=== PATIENT | male | born 1965 | race Caucasian/White ===

== ENCOUNTER 2022-07-11 19:20 | Emergency (ER) | payer OTHER ==
[2022-07-11 19:53] VITALS: BP 131/98; PULSE 74; RESP 20; BMI 37.5
[2022-07-11] MEDS ORDERED: KETOROLAC TROMETHAMINE 15 MG/ML VIAL IM ONE (20:19)
[2022-07-11] MEDS ORDERED: KETOROLAC TROMETHAMINE 15 MG/ML VIAL ONE (20:21)
[2022-07-11] MEDS ORDERED: BACITRACIN 15 GM TUBE TOPICAL OINTMENT TP ONE (20:23)
== END 2022-07-11 21:14 | disposition home or self-care (01) ==
LOC: JER 19:20
PROC: 3E0233Z Introduction of Anti-inflammatory into Muscle, Percutaneous Approach (ICD-10-PCS; principal; 2022-07-11)
DX: M79.644 Pain in right finger(s) (principal); W01.0XXA Fall on same level from slipping, tripping and stumbling without subsequent striking against object, initial encounter
CPT/HCPCS: 73130-TC-RT-FY; 99284-25

== ENCOUNTER 2023-08-19 04:40 | Day surgery (SDC) | payer OTHER ==
[2023-08-18 11:27] VITALS: BMI 33.1
[2023-08-19 11:52] VITALS: TEMP 98
[2023-08-19 12:32] VITALS: BP 106/66; PULSE 71; RESP 14
== END 2023-08-19 12:30 | disposition home or self-care (01) ==
LOC: JASU-ENDO 04:40
PROVIDERS: ATTEND Internal Medicine Gastroenterology
PROC: 0DBK8ZX Excision of Ascending Colon, Via Natural or Artificial Opening Endoscopic, Diagnostic (ICD-10-PCS; principal; 2023-08-19 10:30)
DX: Z12.11 Encounter for screening for malignant neoplasm of colon (principal); Z80.0 Family history of malignant neoplasm of digestive organs; D12.2 Benign neoplasm of ascending colon; K57.30 Diverticulosis of large intestine without perforation or abscess without bleeding
CPT/HCPCS: 88305-TC

== ENCOUNTER 2024-04-07 04:45 | Day surgery (SDC) | payer OTHER ==
[2024-04-06 09:45] VITALS: BMI 36.2
[2024-04-07] MEDS ORDERED: LIDOCAINE HCL/PF 1% SDV 5ML VIAL ONE (07:20)
[2024-04-07] MEDS ORDERED: DEXAMETHASONE SOD PHOSPHATE 10 MG/1 ML VIAL ONE (07:20)
[2024-04-07 10:48] VITALS: RESP 18
[2024-04-07] MEDS: LIDOCAINE 1% P/F 10 MG/ML VIAL PNB ONE (12:53)
[2024-04-07] MEDS: IOHEXOL 180 MG/1 ML ML IJ ONE (12:54)
[2024-04-07] MEDS: DEXAMETHASONE SOD PHOSPHATE 10 MG/1 ML VIAL IVPUSH ONE (12:55)
[2024-04-07 13:55] VITALS: BP 120/70; PULSE 64; TEMP 98.2
== END 2024-04-07 13:55 | disposition home or self-care (01) ==
LOC: JASU-SURG 04:45
PROVIDERS: ATTEND Pain Medicine Pain Medicine
PROC: 3E0R3BZ Introduction of Anesthetic Agent into Spinal Canal, Percutaneous Approach (ICD-10-PCS; 2024-04-07)
PROC: 3E0R33Z Introduction of Anti-inflammatory into Spinal Canal, Percutaneous Approach (ICD-10-PCS; principal; 2024-04-07 12:15)
DX: M48.061 Spinal stenosis, lumbar region without neurogenic claudication (principal)
CPT/HCPCS: 76000-TC-FY; J1100

== ENCOUNTER 2024-05-04 04:23 | Day surgery (SDC) | payer OTHER ==
[2024-05-03 11:45] VITALS: BMI 35.6
[2024-05-04] MEDS ORDERED: BUPIVACAINE HCL/PF 0.75% 10 ML VIAL ONE (07:18)
[2024-05-04] MEDS ORDERED: LIDOCAINE HCL/PF 1% SDV 5ML VIAL ONE (07:18)
[2024-05-04] MEDS: BUPIVACAINE HCL/PF 0.75% 10 ML VIAL PNB ONE (12:21)
[2024-05-04] MEDS: LIDOCAINE 1% P/F 10 MG/ML VIAL PNB ONE (12:21)
[2024-05-04 13:29] VITALS: BP 103/63; PULSE 69; RESP 18; TEMP 98.4
== END 2024-05-04 13:05 | disposition home or self-care (01) ==
LOC: JASU-SURG 04:23
PROVIDERS: ATTEND Pain Medicine Pain Medicine
PROC: 3E0T3BZ Introduction of Anesthetic Agent into Peripheral Nerves and Plexi, Percutaneous Approach (ICD-10-PCS; principal; 2024-05-04 11:45)
DX: M47.816 Spondylosis without myelopathy or radiculopathy, lumbar region (principal)
CPT/HCPCS: 76000-TC-FY